=== PATIENT | male | born 1995 | race Caucasian/White ===

== ENCOUNTER 2017-05-04 13:25 | Inpatient (IN) ==
[2017-05-04] MEDS ORDERED: HYDROmorphone 2 MG/1 ML VIAL ONE ×2 (13:28→15:13)
[2017-05-04] MEDS ORDERED: ONDANSETRON 4 MG/2 ML VIAL ONE ×2 (13:28→16:20)
[2017-05-04] MEDS ORDERED: HYDROmorphone 2 MG/1 ML VIAL IV STA ×2 (13:42→15:11)
[2017-05-04] MEDS ORDERED: SODIUM CHLORIDE 0.9% 1,000 ML IV STA (13:42)
[2017-05-04] MEDS ORDERED: DIPH/TET/ACEL PERT BOOSTER VACCINE 0.5 ML VIAL IM ONE ×2 (13:42→14:01)
[2017-05-04] MEDS ORDERED: ONDANSETRON 4 MG/2 ML VIAL IV STA (13:42)
[2017-05-04] MEDS ORDERED: LACTATED RINGERS 1,000 ML IV STA (13:44)
[2017-05-04] MEDS ORDERED: ceFAZolin 1,000 MG VIAL ONE (14:01)
[2017-05-04 14:36] LABS: ABG Base Excess -2.7 MMOL/L (-2.5-2.5); ABG HCO3 22.9 MMOL/L (20-26); ABG Oxygen Saturation 96.7 % (95-100); ABG PH 7.345 (7.35-7.45); ABG PO2 89.8 MM HG (80-95); ABG TCO2 24.3 MMOL/L (23-27)
[2017-05-04 14:47] LABS: Basophils # 0.1 10*3/uL (0.0-0.2); Basophils % 0.3 % (0.0-0.8); Hematocrit 44.7 VOL% (42.0-52.0); Hemoglobin 15.6 GM/DL (14.0-18.0); Immature Granulocytes % 0.7 %; Immature Granulocytes Absolute 0.16 #; Lymphocytes # 1.3 10*3/uL (1.4-4.0); Lymphocytes % 5.3 % (21.2-54.2); Mean Corpuscular HGB Conc 34.9 GM/DL (32-36); Mean Corpuscular Hemoglobin 30 PG (27-34); Mean Corpuscular Volume 85.6 FL (87-102); Mean Platelet Volume 10.4 FL (9.6-12.0); Monocytes % 8.2 % (1.7-12.7); Neutrophils # 20.4 10*3/uL (1.4-7.4); Neutrophils % 85.5 % (38.7-73.9); Platelet Count 227 T/CUMM (130-400); Red Blood Count 5.22 MC/CUMM (3.8-5.5); Red Cell Distribution Width 12.9 % (9.3-17.3); White Blood Count 23.8 T/CUMM (4-12)
[2017-05-04 14:56] LABS: INR 1.1; PT Patient Result 11.1 SECS; Partial Thromboplastin Time 23.8 SECS (0-40)
[2017-05-04 15:08] LABS: Band Neutrophils 2 % (0-10); Lymphocytes 8 % (20-55); Platelet Estimate Adequate; Segmented Neutrophils 83 % (50-85); Total Cells Counted 100
[2017-05-04 15:09] LABS: Alanine Aminotransferase 71 U/L (16-61); Albumin 3.8 G/DL (3.4-5.0); Alkaline Phosphatase 91 U/L (45-117); Amylase 47 U/L (25-115); Aspartate Amino Transferase 43 U/L (0-37); Blood Urea Nitrogen 13 MG/DL (7-18); Calcium 8.8 MG/DL (8.5-10.1); Glucose 97 MG/DL (74-106); Lactic Acid 1.7 MMOL/L (0.4-2.0); Osmolality,Calculated 274.7 MOS/KG (273-304); Potassium 4.3 MMOL/L (3.5-5.1); Sodium 138 MMOL/L (136-145); Total Protein 7.1 G/DL (6.4-8.3)
[2017-05-04 15:45] LABS: Barbiturates Screen,Urine Negative (Negative); Benzodiazepines Screen,Urine Negative (Negative); Cannabinoid Screen,Urine Negative (Negative); Opiate Screen,Urine Positive (Negative); Phencyclidine Screen,Urine Negative (Negative)
[2017-05-04 15:46] LABS: Apearance,Urine CLEAR (Clear); Bilirubin,Urine Negative (Negative); Blood, Urine Small mg/dL (Negative); Glucose,Urine (UA) Negative (Negative); Ketones,Urine Negative (Negative); Mucus,Urine Occasional /LPF (Occasional); Nitrite,Urine Negative (Negative); Protein,Urine Negative; RBC,Urine <1 /HPF (0-4); Urine Color Yellow (Yellow); Urine Specific Gravity 1.046 (1.001-1.035); Urine Urobilinogen < 2.0 EU/DL (0.2-1.0); WBC,Urine <1 /HPF (0-6)
[2017-05-04] MEDS ORDERED: ceFAZolin 2,000 MG in PREMIX 1 EACH IV ONE (15:54)
[2017-05-04] MEDS ORDERED: DEXAMETHASONE 10 MG/1 ML VIAL ONE (16:20)
[2017-05-04] MEDS ORDERED: GLYCOPYRROLATE 0.4 MG/2 ML VIAL ONE (16:20)
[2017-05-04] MEDS ORDERED: ROCURONIUM 100 MG/10 ML VIAL IV ONE (16:20)
[2017-05-04] MEDS ORDERED: PHENYLEPHRINE 1 MG/10 ML SYRINGE IV ONE (16:20)
[2017-05-04] MEDS ORDERED: PROPOFOL 200 MG/20 ML VIAL IV ONE (16:20)
[2017-05-04] MEDS ORDERED: LIDOCAINE 1% 5 ML VIAL ONE (16:20)
[2017-05-04] MEDS ORDERED: KETOROLAC 30 MG/1 ML VIAL ONE (16:20)
[2017-05-04] MEDS ORDERED: NEOSTIGMINE 10 MG/10 ML VIAL ONE (16:20)
[2017-05-04] MEDS ORDERED: diphenhydrAMINE CAP 25 MG CAPSULE PO PRN (17:02)
[2017-05-04] MEDS ORDERED: MORPHINE 2 MG/1 ML SYRINGE IV PRN ×2 (17:02)
[2017-05-04] MEDS ORDERED: MAGNESIUM HYDROXIDE SUSP 30 ML UDCUP PO PRN (17:02)
[2017-05-04] MEDS ORDERED: SUFentanil 50 MCG/ML AMP ONE (18:24)
[2017-05-04] MEDS ORDERED: SEVOFLURANE 1 UNIT/15 MINUTE INH ONE (19:17)
[2017-05-04] MEDS ORDERED: ACETAMINOPHEN 1,000 MG/100 ML VIAL IV ONE (19:17)
[2017-05-04] MEDS ORDERED: LACTATED RINGERS 2,000 ML IV ONE (19:17)
[2017-05-04] MEDS: DOCUSATE SODIUM 100 MG CAPSULE PO SCH (21:34)
[2017-05-04] MEDS: KETOROLAC 30 MG/1 ML VIAL IV SCH ×2 (21:35→23:34)
[2017-05-04] MEDS: LACTATED RINGERS 1,000 ML IV SCH (21:58)
[2017-05-04] MEDS: ceFAZolin 2,000 MG in PREMIX 1 EACH IV SCH (22:02)
[2017-05-05] MEDS: LACTATED RINGERS 1,000 ML IV SCH ×3 (04:00→16:48)
[2017-05-05] MEDS: KETOROLAC 30 MG/1 ML VIAL IV SCH ×2 (05:19→11:06)
[2017-05-05] MEDS: ceFAZolin 2,000 MG in PREMIX 1 EACH IV SCH (05:21)
[2017-05-05 07:11] LABS: Basophils % 0.1 % (0.0-0.8); Hematocrit 35.5 VOL% (42.0-52.0); Hemoglobin 12.5 GM/DL (14.0-18.0); Immature Granulocytes % 0.4 %; Immature Granulocytes Absolute 0.05 #; Lymphocytes # 1.1 10*3/uL (1.4-4.0); Lymphocytes % 9.1 % (21.2-54.2); Mean Corpuscular HGB Conc 35.2 GM/DL (32-36); Mean Corpuscular Hemoglobin 29 PG (27-34); Mean Corpuscular Volume 83.1 FL (87-102); Mean Platelet Volume 10.9 FL (9.6-12.0); Monocytes % 8.5 % (1.7-12.7); Neutrophils % 81.9 % (38.7-73.9); Platelet Count 221 T/CUMM (130-400); Red Blood Count 4.27 MC/CUMM (3.8-5.5); Red Cell Distribution Width 12.8 % (9.3-17.3); White Blood Count 12.2 T/CUMM (4-12)
[2017-05-05 07:41] LABS: Calcium 8.5 MG/DL (8.5-10.1); Osmolality,Calculated 278.4 MOS/KG (273-304); Potassium 3.8 MMOL/L (3.5-5.1)
[2017-05-05] MEDS: DOCUSATE SODIUM 100 MG CAPSULE PO SCH ×2 (08:35→20:22)
[2017-05-05] MEDS ORDERED: INFLUENZA VIRUS VACCINE 0.5 ML SYRINGE IM ONE (09:00)
[2017-05-05] MEDS: FONDAPARINUX 2.5 MG/0.5 ML SYRINGE SUBCUT SCH (11:06)
[2017-05-06] MEDS: LACTATED RINGERS 1,000 ML IV SCH ×3 (05:54→20:18)
[2017-05-06 07:28] LABS: Basophils % 0.3 % (0.0-0.8); Eosinophils # 0.1 10*3/uL (0.0-0.87); Eosinophils % 0.6 % (0.00-10.9); Hematocrit 31.9 VOL% (42.0-52.0); Hemoglobin 11.3 GM/DL (14.0-18.0); Immature Granulocytes % 0.5 %; Immature Granulocytes Absolute 0.06 #; Lymphocytes # 1.7 10*3/uL (1.4-4.0); Lymphocytes % 15.1 % (21.2-54.2); Mean Corpuscular HGB Conc 35.4 GM/DL (32-36); Mean Corpuscular Hemoglobin 30 PG (27-34); Mean Corpuscular Volume 84.4 FL (87-102); Monocytes % 8.6 % (1.7-12.7); Neutrophils # 8.3 10*3/uL (1.4-7.4); Neutrophils % 74.9 % (38.7-73.9); Platelet Count 184 T/CUMM (130-400); Red Blood Count 3.78 MC/CUMM (3.8-5.5); White Blood Count 11.1 T/CUMM (4-12)
[2017-05-06] MEDS: DOCUSATE SODIUM 100 MG CAPSULE PO SCH ×2 (08:14→20:17)
[2017-05-06] MEDS: FONDAPARINUX 2.5 MG/0.5 ML SYRINGE SUBCUT SCH (12:46)
[2017-05-07] MEDS: LACTATED RINGERS 1,000 ML IV SCH (04:03)
[2017-05-07 05:02] LABS: Basophils % 0.3 % (0.0-0.8); Eosinophils # 0.1 10*3/uL (0.0-0.87); Eosinophils % 0.7 % (0.00-10.9); Hematocrit 31.9 VOL% (42.0-52.0); Immature Granulocytes % 0.7 %; Immature Granulocytes Absolute 0.08 #; Lymphocytes # 2.3 10*3/uL (1.4-4.0); Lymphocytes % 19.5 % (21.2-54.2); Mean Corpuscular HGB Conc 34.5 GM/DL (32-36); Mean Corpuscular Hemoglobin 29 PG (27-34); Mean Corpuscular Volume 84.8 FL (87-102); Mean Platelet Volume 11.2 FL (9.6-12.0); Neutrophils # 8.5 10*3/uL (1.4-7.4); Neutrophils % 70.8 % (38.7-73.9); Platelet Count 178 T/CUMM (130-400); Red Blood Count 3.76 MC/CUMM (3.8-5.5); Red Cell Distribution Width 12.9 % (9.3-17.3); White Blood Count 11.9 T/CUMM (4-12)
[2017-05-07] MEDS: DOCUSATE SODIUM 100 MG CAPSULE PO SCH (08:42)
[2017-05-07] MEDS ORDERED: TOPIRAMATE 25 MG TABLET PO SCH (09:00)
[2017-05-07 11:02] VITALS: BP 127/74
[2017-05-07] MEDS: FONDAPARINUX 2.5 MG/0.5 ML SYRINGE SUBCUT SCH (11:21)
== END 2017-05-07 11:10 | disposition home or self-care (01) | DRG 482 ==
LOC: N.ED 13:25 → N.EDINP 15:39 → N.3E 20:00
PROVIDERS: ADMIT Orthopaedic Surgery; ATTEND Orthopaedic Surgery